=== PATIENT | male | born 1950 | race Caucasian/White ===

== ENCOUNTER 2017-01-12 17:45 | Emergency (ER) | payer MEDICARE ==
[2017-01-12 18:35] LABS: Hematocrit 37.2 % (42.0-52.0); Red Blood Cell (RBC) Count 3.92 mill/uL (4.70-6.10); White Blood Cell (WBC) Count 24.3 thou/uL (4.8-10.8)
[2017-01-12 18:37] LABS: ALT (SGPT) 60 U/L (0-55); AST (SGOT) 82 U/L (5-34); Alkaline Phosphatase 78 U/L (40-150); Anion Gap 27 mmol/L (10-20); BUN (Urea Nitrogen) 17 mg/dL (8.4-25.7); Band 2 % (5-11); Bilirubin, Total 0.2 mg/dL (0.2-1.2); Calc. Creatinine Clearance 0 mL/min (70-130); Calcium 8.8 mg/dL (7.8-10.44); Carbon Dioxide 16 mmol/L (23-31); Chloride 99 mmol/L (98-107); Estimated GFR-MDRD 55; Globulin 2.5 g/dL (2.4-3.5); Hypochromia SLIGHT = 6-15 cells (100X) (0-5/hpf); Neutrophil 48 % (42-75); Protein, Total 5.2 g/dL (5.8-8.1); Troponin I 0.041 ng/mL (< 0.028)
[2017-01-12] MEDS ORDERED: EPINEPHrine 1 MG/ML VIAL ONE (18:54)
== END 2017-01-12 21:08 | disposition expired ==
LOC: EDBD 17:45 → NAV ERS 17:45
DX: I46.9 Cardiac arrest, cause unspecified (principal); J44.9 Chronic obstructive pulmonary disease, unspecified; D64.9 Anemia, unspecified
CPT/HCPCS: 80053; 82553; 84484; 85025; 96374; 96375; 96376; J0171